=== PATIENT | male | born 1945 | race Caucasian/White ===

== ENCOUNTER → 2018-01-01 | Outpatient (CLI) | payer OTHER | END | disposition home or self-care (01) | LOC: RAD 12:50 | DX: I25.119 Atherosclerotic heart disease of native coronary artery with unspecified angina pectoris (principal); R93.1 Abnormal findings on diagnostic imaging of heart and coronary circulation; R94.30 Abnormal result of cardiovascular function study, unspecified | CPT/HCPCS: 75574 ==

== ENCOUNTER 2018-01-14 11:56 | Day surgery (SDC) | payer OTHER ==
[~2018-01-14] VITALS: Ht 172.7 cm; Wt 121.1 kg
[~2018-01-14 11:56] MED LIST: AMLODIPINE BES2.5 MG PO; APPLE CIDER VI500 MG PO; ASPIR-LOW81 MG PO; FINASTERIDE5 MG PO; FLONASE16 G1 BOTH NARES; HYDROCHLOROTHIA25 MG PO; IRON325 M1 PO; LISINOPRIL10 MG PO; METFORMIN HCL500 MG PO; OXYCODONE HCL5 MG PO; PANTOPRAZOLE SO40 MG PO; TAMSULOSIN HCL0.4 MG PO; TYLENOL ARTHRI650 MG PO; VITAMIN D31000 UNI2 PO; ZINC50 M3 PO; ZYRTEC10 M3 PO
[2018-01-14 13:01] LABS: HEMATOCRIT 37.6 % (38.0-50.0); HEMOGLOBIN 13.2 G/DL (12.5-16.6); MCH 31.7 PG (29.0-34.0); MCHC 35.1 G/DL (30.0-36.0); MCV 90.2 FL (86-99); PLATELET COUNT 174 K/uL (156-360); RBC DIS.WIDTH-CV 13.4 % (11.8-14.6); RBC DIS.WIDTH-SD 44.2 % (39-53); RED BLOOD COUNT 4.17 M/uL (4.00-5.50); WHITE BLOOD COUNT 7.1 K/uL (4.1-10.2)
[2018-01-14 13:09] LABS: CHLORIDE 106 mEq/L (99-109); POTASSIUM 3.9 mEq/L (3.7-5.4); SODIUM 140 mEq/L (136-147)
[2018-01-14 13:11] LABS: GLUCOSE 101 mg/dL (70-99)
[2018-01-14 13:15] LABS: CREATININE 0.8 mg/dL (0.6-1.3); GFR ESTIMATE (CALCULATED) > 59 mL/min/ (58.99-99999)
[2018-01-14 13:16] LABS: UREA NITROGEN (BUN) 17 mg/dL (9-23)
== END 2018-01-14 19:55 | disposition home or self-care (01) ==
LOC: CATH 11:56
PROVIDERS: Internal Medicine Cardiovascular Disease
DX: I25.10 Atherosclerotic heart disease of native coronary artery without angina pectoris (principal); I10 Essential (primary) hypertension; G47.33 Obstructive sleep apnea (adult) (pediatric); E78.5 Hyperlipidemia, unspecified; E66.9 Obesity, unspecified; E11.9 Type 2 diabetes mellitus without complications; Z79.82 Long term (current) use of aspirin; Z82.49 Family history of ischemic heart disease and other diseases of the circulatory system; Z79.84 Long term (current) use of oral hypoglycemic drugs
CPT/HCPCS: 80048; 82948; 85027; 93005; C1769; C1887; J1644; J2250; J3010